=== PATIENT | female | born 1960 | race Caucasian/White ===

== ENCOUNTER 2017-07-06 07:52 | Emergency (ER) | payer BC ==
[~2017-07-06] VITALS: Ht 172.7 cm; Wt 75.0 kg
[~2017-07-06 07:52] MED LIST: CIPROFLOXACN500 MG PO; METRONIDAZOL500 MG PO; ONDANSETRON4 MG PO
[2017-07-06 08:18] LABS: IMMATURE GRANULOCYTES 0.4 % (0.0-1.0); MEAN CORPUSCULAR HGB 22.8 pG CALC (26.0-32.0); MEAN CORPUSCULAR HGB CONC 29.9 g/L CALC (32.0-36.0); NEUT# 4.25 thou/uL (2.00-7.15); RED BLOOD COUNT 3.6 mill/uL (4.20-5.60)
[2017-07-06 08:21] LABS: HEMATOCRIT 27.4 % (37.0-47.0); HEMOGLOBIN 8.2 g/dl (12.0-16.0); MEAN CELL VOLUME 76.1 fL CALC (80.0-100.0)
[2017-07-06 08:30] LABS: INFLUENZA A NONE DETECTED (NONE DETECT); INFLUENZA B NONE DETECTED (NONE DETECT)
[2017-07-06 08:37] LABS: ANION GAP 16 (6-22 (CALC)); BUN 15 mg/dL (7-17); BUN/CREATININE RATIO 16 (12-20 (CALC)); CARBON DIOXIDE 24 mmol/l (22-30); CHLORIDE 106 mmol/l (95-108); GFR 57 ML/MIN (>=60 (CALC)); GFR FOR AFR.AMER. > 60 ML/MIN (>=60 (CALC)); POTASSIUM 4.2 mmol/l (3.5-5.1); SODIUM 142 mmol/l (137-146)
[2017-07-06 09:08] LABS: TSH, 3RD GENERATION 2.25 uIU/mL (0.47 - 4.68)
[2017-07-06 09:59] VITALS: BP 144/76
[2017-07-06 10:11] VITALS: BP 148/80
[2017-07-06 10:14] LABS: URINE BILIRUBIN - DIPSTICK NEGATIVE (NEGATIVE); URINE BLOOD DIPSTICK NEGATIVE (NEGATIVE); URINE COLOR YELLOW; URINE GLUCOSE - DIPSTICK NEGATIVE (NEGATIVE); URINE KETONE NEGATIVE (NEGATIVE); URINE LEUK ESTERASE NEGATIVE (NEGATIVE); URINE NITRITE - DIPSTICK NEGATIVE (Negative); URINE PH 6.5 (4.5-8.0); URINE PROTEIN - DIPSTICK NEGATIVE (NEG-TRACE); URINE UROBILINOGEN - DIPSTICK 0.2 E.U./dL (0.2)
[2017-07-06 10:15] LABS: URINE CLARITY CLEAR
[2017-07-06 10:31] VITALS: BP 148/80
== END 2017-07-06 10:31 | disposition short-term general hospital (02) | DRG 312 ==
LOC: ED 07:52
PROVIDERS: Family Medicine
PROC: 30233N1 Transfusion of Nonautologous Red Blood Cells into Peripheral Vein, Percutaneous Approach (ICD-10-PCS; principal; 2017-07-06)
DX: R55 Syncope and collapse (principal); D64.9 Anemia, unspecified; K92.2 Gastrointestinal hemorrhage, unspecified; I10 Essential (primary) hypertension; F17.210 Nicotine dependence, cigarettes, uncomplicated
CPT/HCPCS: P9016

== ENCOUNTER 2018-03-02 05:26 | Emergency (ER) | payer BC ==
[~2018-03-02] VITALS: Ht 170.2 cm; Wt 68.1 kg
[2018-03-02 06:21] LABS: INFLUENZA B NONE DETECTED (NONE DETECT)
[2018-03-02] MEDS ORDERED: ROBITUSSIN AC10 ML PO (06:22)
[2018-03-02] MEDS ORDERED: ZITHROMAX250 MG PO (06:22)
[2018-03-02 06:25] VITALS: BP 113/70
== END 2018-03-02 06:35 | disposition home or self-care (01) | DRG 153 ==
LOC: ED 05:26
PROVIDERS: Emergency Medicine
DX: J06.9 Acute upper respiratory infection, unspecified (principal); I10 Essential (primary) hypertension; F32.9 Major depressive disorder, single episode, unspecified; K21.9 Gastro-esophageal reflux disease without esophagitis; F17.210 Nicotine dependence, cigarettes, uncomplicated

== ENCOUNTER 2018-12-15 09:20 | Emergency (ER) | payer BC ==
[~2018-12-15] VITALS: Ht 170.2 cm; Wt 75.0 kg
[~2018-12-15 09:20] MED LIST changes: +ROBITUSSIN AC10 ML PO; +ZITHROMAX250 MG PO
[2018-12-15 09:52] LABS: IMMATURE GRANULOCYTES 0.5 % (0.0-5.0); MEAN CORPUSCULAR HGB 29.1 pG CALC (26.0-32.0); MEAN CORPUSCULAR HGB CONC 32.9 g/L CALC (32.0-36.0); NEUT# 5.33 thou/uL (2.00-7.15); RED BLOOD COUNT 4.47 mill/uL (4.20-5.60); RED CELL DISTRI WIDTH 13.7 % (11.5-15.5)
[2018-12-15 09:54] LABS: HEMATOCRIT 39.5 % (37.0-47.0); MEAN CELL VOLUME 88.4 fL CALC (80.0-100.0)
[2018-12-15 10:11] LABS: ACT PARTIAL THROMBO TIME 26.6 SECONDS (20.0-32.5); INTERNATIONAL NORMALIZED RATIO 0.9 RATIO (0.7-1.3); PROTHROMBIN TIME 9.9 SECONDS (9.0-12.5)
[2018-12-15 10:27] LABS: ALBUMIN 4.5 g/dL (3.2-5.0); ALKALINE PHOSPHATASE 60 u/l (38-126); AMYLASE 47 u/l (30-110); ANION GAP 11 (6-22 (CALC)); BILIRUBIN, TOTAL 0.3 mg/dL (0.0-1.4); BUN 18 mg/dL (7-17); BUN/CREATININE RATIO 23 (12-20 (CALC)); CARBON DIOXIDE 26 mmol/l (22-30); CHLORIDE 108 mmol/l (95-108); CREATININE 0.8 mg/dL (0.5-1.0); ETHYL ALCOHOL 0 mg/dl (0-30); GFR > 60 ML/MIN (>=60 (CALC)); GFR FOR AFR.AMER. > 60 ML/MIN (>=60 (CALC)); LIPASE 61 u/l (23-300); POTASSIUM 4.4 mmol/l (3.5-5.1); SGOT/AST 20 u/l (14-36); SODIUM 141 mmol/l (137-146); TOTAL PROTEIN 7.5 g/dL (6.3-8.2)
[2018-12-15 11:49] LABS: URINE BILIRUBIN - DIPSTICK NEGATIVE (NEGATIVE); URINE BLOOD DIPSTICK NEGATIVE (NEGATIVE); URINE COLOR YELLOW; URINE GLUCOSE - DIPSTICK NEGATIVE (NEGATIVE); URINE KETONE NEGATIVE (NEGATIVE); URINE LEUK ESTERASE NEGATIVE (NEGATIVE); URINE NITRITE - DIPSTICK NEGATIVE (Negative); URINE PROTEIN - DIPSTICK NEGATIVE (NEG-TRACE); URINE UROBILINOGEN - DIPSTICK 0.2 E.U./dL (0.2)
[2018-12-15 11:52] LABS: BARBITURATES NEGATIVE (NEGATIVE); COCAINE NEGATIVE (NEGATIVE); METHADONE NEGATIVE (NEGATIVE); OXCYCODONE NEGATIVE (NEGATIVE); TETRAHYDROCANNABIONOL NEGATIVE (NEGATIVE); TRICYLIC ANTIDEPRESSANTS NEGATIVE (NEGATIVE)
[2018-12-15] MEDS ORDERED: ZOFRAN4 MG/TAB PO (13:18)
[2018-12-15] MEDS ORDERED: LIPITOR20 M1 PO (14:11)
[2018-12-15] MEDS ORDERED: NAPROXEN EC500 MG PO (14:11)
[2018-12-15] MEDS ORDERED: BUPROPION HCL150 M1 PO (14:11)
[2018-12-15] MEDS ORDERED: NORVASC5 M1 PO (14:12)
[2018-12-15] MEDS ORDERED: OMEPRAZOLE DR20 MG PO (14:12)
[2018-12-15] MEDS ORDERED: CITALOPRAM40 MG PO (14:12)
[2018-12-15] MEDS ORDERED: OXYBUTYNIN10 MG PO (14:13)
[2018-12-15] MEDS ORDERED: PREMARIN1.25 MG PO (14:14)
[2018-12-15 14:28] VITALS: BP 153/85
== END 2018-12-15 14:40 | disposition home or self-care (01) | DRG 149 ==
LOC: ED 09:20
DX: R42 Dizziness and giddiness (principal); R10.84 Generalized abdominal pain; I10 Essential (primary) hypertension; F17.200 Nicotine dependence, unspecified, uncomplicated
CPT/HCPCS: Q9967

== ENCOUNTER 2019-10-07 11:23 | Emergency (ER) | payer BC ==
[~2019-10-07] VITALS: Ht 170.2 cm; Wt 77.3 kg
[~2019-10-07 11:23] MED LIST changes: +BUPROPION HCL150 M1 PO; +CITALOPRAM40 MG PO; +LIPITOR20 M1 PO; +NAPROXEN EC500 MG PO; +NORVASC5 M1 PO; +OMEPRAZOLE DR20 MG PO; +OXYBUTYNIN10 MG PO; +PREMARIN1.25 MG PO; +ZOFRAN4 MG/TAB PO
[2019-10-07 11:56] LABS: HEMOGLOBIN 12.3 g/dl (12.0-16.0); IMMATURE GRANULOCYTES 0.8 % (0.0-5.0); MEAN CORPUSCULAR HGB 28.3 pG CALC (26.0-32.0); MEAN CORPUSCULAR HGB CONC 34.2 g/dL CAL (32.0-36.0); NEUT# 6.13 thou/uL (2.00-7.15); RED BLOOD COUNT 4.35 mill/uL (4.20-5.60); RED CELL DISTRI WIDTH 13.8 % (11.5-15.5)
[2019-10-07 11:57] LABS: MEAN CELL VOLUME 82.8 fL CALC (80.0-100.0)
[2019-10-07 12:11] LABS: INTERNATIONAL NORMALIZED RATIO 0.9 RATIO (0.7-1.3); PROTHROMBIN TIME 9.4 SECONDS (9.0-12.5)
[2019-10-07] MEDS ORDERED: ARNUITY EL50 MCG/ACT (12:15)
[2019-10-07] MEDS ORDERED: TRAMADOL HCL50 MG PO (12:16)
[2019-10-07] MEDS ORDERED: LYRICA75 MG PO (12:16)
[2019-10-07] MEDS ORDERED: DIOVAN160 MG PO (12:17)
[2019-10-07 12:45] LABS: ALBUMIN 4.2 g/dL (3.2-5.0); ALKALINE PHOSPHATASE 67 u/l (38-126); BILIRUBIN, TOTAL 0.3 mg/dL (0.0-1.4); BUN 22 mg/dL (7-17); BUN/CREATININE RATIO 26 (12-20 (CALC)); CARBON DIOXIDE 25 mmol/l (22-30); CHLORIDE 106 mmol/l (95-108); CREATININE 0.9 mg/dL (0.5-1.0); GFR > 60 ML/MIN (>=60 (CALC)); GFR FOR AFR.AMER. > 60 ML/MIN (>=60 (CALC)); SGOT/AST 33 u/l (14-36); SODIUM 136 mmol/l (137-146)
[2019-10-07 12:54] LABS: ANION GAP 9 (6-22 (CALC)); POTASSIUM 3.5 mmol/l (3.5-5.1)
[2019-10-07 14:04] LABS: URINE BILIRUBIN - DIPSTICK NEGATIVE (NEGATIVE); URINE BLOOD DIPSTICK NEGATIVE (NEGATIVE); URINE COLOR YELLOW; URINE GLUCOSE - DIPSTICK NEGATIVE (NEGATIVE); URINE KETONE NEGATIVE (NEGATIVE); URINE LEUK ESTERASE NEGATIVE (NEGATIVE); URINE NITRITE - DIPSTICK NEGATIVE (Negative); URINE PH 7.5 (4.5-8.0); URINE PROTEIN - DIPSTICK NEGATIVE (NEG-TRACE); URINE UROBILINOGEN - DIPSTICK 0.2 E.U./dL (0.2)
[2019-10-07 15:38] VITALS: BP 135/87
== END 2019-10-07 16:15 | disposition home or self-care (01) | DRG 880 ==
LOC: ED 11:23
PROVIDERS: Student in an Organized Health Care Education/Training Program
DX: F41.9 Anxiety disorder, unspecified (principal); R53.1 Weakness; I10 Essential (primary) hypertension; F32.9 Major depressive disorder, single episode, unspecified; F17.200 Nicotine dependence, unspecified, uncomplicated
CPT/HCPCS: J2060

== ENCOUNTER 2020-10-13 07:55 | Emergency (ER) | payer OTHER ==
[~2020-10-13] VITALS: Ht 170.2 cm; Wt 70.0 kg
[~2020-10-13 07:55] MED LIST changes: +ARNUITY EL50 MCG/ACT; +DIOVAN160 MG PO; +LYRICA75 MG PO; +TRAMADOL HCL50 MG PO
[2020-10-13 08:48] LABS: HEMATOCRIT 37.6 % (37.0-47.0); HEMOGLOBIN 12.1 g/dl (12.0-16.0); IMMATURE GRANULOCYTES 0.2 % (0.0-5.0); MEAN CORPUSCULAR HGB 28.3 pG CALC (26.0-32.0); MEAN CORPUSCULAR HGB CONC 32.2 g/dL CAL (32.0-36.0); NEUT# 3.62 thou/uL (2.00-7.15); RED BLOOD COUNT 4.28 mill/uL (4.20-5.60); RED CELL DISTRI WIDTH 13.9 % (11.5-15.5)
[2020-10-13 08:49] LABS: MEAN CELL VOLUME 87.9 fL CALC (80.0-100.0)
[2020-10-13 08:51] LABS: URINE BILIRUBIN - DIPSTICK NEGATIVE (NEGATIVE); URINE BLOOD DIPSTICK NEGATIVE (NEGATIVE); URINE COLOR YELLOW; URINE GLUCOSE - DIPSTICK NEGATIVE (NEGATIVE); URINE KETONE NEGATIVE (NEGATIVE); URINE LEUK ESTERASE NEGATIVE (NEGATIVE); URINE PH 7.5 (4.5-8.0); URINE PROTEIN - DIPSTICK TRACE mg/dL (NEG-TRACE); URINE SPECIFIC GRAVITY 1.015; URINE UROBILINOGEN - DIPSTICK 0.2 E.U./dL (0.2)
[2020-10-13 08:52] LABS: ALBUMIN 4.6 g/dL (3.2-5.0); ALKALINE PHOSPHATASE 63 u/l (38-126); BILIRUBIN, TOTAL 0.2 mg/dL (0.0-1.4); BUN 19 mg/dL (7-17); BUN/CREATININE RATIO 20 (12-20 (CALC)); CARBON DIOXIDE 27 mmol/l (22-30); CHLORIDE 105 mmol/l (95-108); CREATININE 0.9 mg/dL (0.5-1.0); GFR > 60 ML/MIN (>=60 (CALC)); GFR FOR AFR.AMER. > 60 ML/MIN (>=60 (CALC)); SGOT/AST 28 u/l (14-36); SODIUM 139 mmol/l (137-146); TOTAL PROTEIN 8.2 g/dL (6.3-8.2)
[2020-10-13 08:55] LABS: URINE NITRITE - DIPSTICK NEGATIVE (Negative)
[2020-10-13 09:02] LABS: ANION GAP 11 (6-22 (CALC)); POTASSIUM 4.3 mmol/l (3.5-5.1)
[2020-10-13 09:03] LABS: MYOGLOBIN 45 ng/mL (0 - 62)
[2020-10-13] MEDS ORDERED: CLARITIN10 M1 PO (10:18)
[2020-10-13] MEDS ORDERED: ZPAK PO (10:18)
[2020-10-13 10:20] VITALS: BP 162/82
== END 2020-10-13 10:32 | disposition home or self-care (01) | DRG 153 ==
LOC: ED 07:55
PROVIDERS: Emergency Medicine
DX: J32.9 Chronic sinusitis, unspecified (principal); I10 Essential (primary) hypertension; F32.9 Major depressive disorder, single episode, unspecified; K21.9 Gastro-esophageal reflux disease without esophagitis; F17.210 Nicotine dependence, cigarettes, uncomplicated; Z20.822 Contact with and (suspected) exposure to COVID-19

== ENCOUNTER 2021-02-06 10:12 | Observation (INO) | payer OTHER ==
[~2021-02-06] VITALS: Ht 170.2 cm; Wt 72.6 kg
[~2021-02-06 10:12] MED LIST changes: -BUPROPION HCL150 M1 PO; +BUPROPION100 MG PO; +CLARITIN10 M1 PO; +DITROPAN XL10 MG PO; -OXYBUTYNIN10 MG PO; +ZPAK PO
[2021-02-06 11:06] LABS: HEMOGLOBIN 11.3 g/dl (12.0-16.0); IMMATURE GRANULOCYTES 0.3 % (0.0-5.0); MEAN CELL VOLUME 85.4 fL CALC (80.0-100.0); MEAN CORPUSCULAR HGB 28.4 pG CALC (26.0-32.0); MEAN CORPUSCULAR HGB CONC 33.2 g/dL CAL (32.0-36.0); NEUT# 4.25 thou/uL (2.00-7.15); RED BLOOD COUNT 3.98 mill/uL (4.20-5.60); RED CELL DISTRI WIDTH 13.6 % (11.5-15.5)
[2021-02-06 11:22] LABS: ALBUMIN 4.4 g/dL (3.2-5.0); ALKALINE PHOSPHATASE 78 u/l (38-126); ANION GAP 14 (6-22 (CALC)); BILIRUBIN, TOTAL 0.4 mg/dL (0.0-1.4); BUN 21 mg/dL (8-23); BUN/CREATININE RATIO 23 (12-20 (CALC)); CARBON DIOXIDE 21 mmol/l (22-30); CHLORIDE 108 mmol/l (95-108); CREATININE 0.9 mg/dL (0.5-1.0); GFR > 60 ML/MIN (>=60 (CALC)); GFR FOR AFR.AMER. > 60 ML/MIN (>=60 (CALC)); POTASSIUM 4.6 mmol/l (3.5-5.1); SGOT/AST 21 u/l (9-36); SODIUM 138 mmol/l (137-146); TOTAL PROTEIN 7.7 g/dL (6.3-8.2)
[2021-02-06] MEDS ORDERED: TOPROL XL25 M1 PO (14:29)
[2021-02-06] MEDS ORDERED: FLONASE AL50 MCG/ACT (14:29)
[2021-02-06 15:47] VITALS: BP 179/93
[2021-02-06 19:00] VITALS: BP 118/68
[2021-02-07] VITALS: BP 111/77
[2021-02-07 04:00] VITALS: BP 143/89
[2021-02-07 06:12] LABS: HEMATOCRIT 33.1 % (37.0-47.0); HEMOGLOBIN 10.9 g/dl (12.0-16.0); MEAN CELL VOLUME 86.2 fL CALC (80.0-100.0); MEAN CORPUSCULAR HGB 28.4 pG CALC (26.0-32.0); MEAN CORPUSCULAR HGB CONC 32.9 g/dL CAL (32.0-36.0); RED BLOOD COUNT 3.84 mill/uL (4.20-5.60); RED CELL DISTRI WIDTH 13.7 % (11.5-15.5)
[2021-02-07 06:27] LABS: ANION GAP 9 (6-22 (CALC)); BUN 22 mg/dL (8-23); BUN/CREATININE RATIO 21 (12-20 (CALC)); CALCULATED LDLCHOLESTEROL 127 mg/dL (62-129 (CALC)); CARBON DIOXIDE 27 mmol/l (22-30); CHLORIDE 107 mmol/l (95-108); GFR 56 ML/MIN (>=60 (CALC)); GFR FOR AFR.AMER. > 60 ML/MIN (>=60 (CALC)); HDL CHOLESTEROL 49 mg/dL (>=40); MAGNESIUM 2.1 mg/dL (1.6-2.3); POTASSIUM 4.4 mmol/l (3.5-5.1); SODIUM 139 mmol/l (137-146); TOTAL CHOLESTEROL 244 mg/dl (0-199); TOTAL TRIGLYCERIDES 341 mg/dl (30-149); VLDL CHOLESTROL 68 mg/dl (1-41 (CALC))
[2021-02-07 07:15] VITALS: BP 149/82
[2021-02-07 10:54] VITALS: BP 137/86
[2021-02-07] MEDS ORDERED: TOPROL XL50 MG PO (15:46)
[2021-02-07] MEDS ORDERED: MECLIZINE25 MG PO (16:40)
[2021-02-07] MEDS ORDERED: ASPIRIN 81 LOW81 MG PO (16:40)
== END 2021-02-07 17:11 | disposition home or self-care (01) | DRG 313 ==
LOC: ED 10:12 → ED-I 13:14 → ED 13:31 → MS2 13:31
PROVIDERS: Family Medicine; ADMIT Hospitalist; ATTEND Hospitalist
DX: R07.9 Chest pain, unspecified (principal); R42 Dizziness and giddiness; R51.9 Headache, unspecified; R53.1 Weakness; I49.3 Ventricular premature depolarization; R00.8 Other abnormalities of heart beat; G47.30 Sleep apnea, unspecified; I10 Essential (primary) hypertension; E78.5 Hyperlipidemia, unspecified; K21.9 Gastro-esophageal reflux disease without esophagitis; F32.A Depression, unspecified; G89.4 Chronic pain syndrome; F17.200 Nicotine dependence, unspecified, uncomplicated; Z20.822 Contact with and (suspected) exposure to COVID-19
CPT/HCPCS: G0378; J1650

== ENCOUNTER 2021-02-18 13:37 | Emergency (ER) | payer OTHER ==
[~2021-02-18] VITALS: Ht 170.2 cm; Wt 75.0 kg
[~2021-02-18 13:37] MED LIST changes: +ASPIRIN 81 LOW81 MG PO; +FLONASE AL50 MCG/ACT; +MECLIZINE25 MG PO; +TOPROL XL25 M1 PO; +TOPROL XL50 MG PO
[2021-02-18 14:57] LABS: HEMATOCRIT 28.3 % (37.0-47.0); HEMOGLOBIN 9.3 g/dl (12.0-16.0); IMMATURE GRANULOCYTES 0.8 % (0.0-5.0); MEAN CELL VOLUME 86.8 fL CALC (80.0-100.0); MEAN CORPUSCULAR HGB 28.5 pG CALC (26.0-32.0); MEAN CORPUSCULAR HGB CONC 32.9 g/dL CAL (32.0-36.0); NEUT# 12.26 thou/uL (2.00-7.15); RED BLOOD COUNT 3.26 mill/uL (4.20-5.60); RED CELL DISTRI WIDTH 13.9 % (11.5-15.5)
[2021-02-18 15:14] LABS: AMYLASE 89 u/l (30-110); LIPASE 93 u/l (23-300)
[2021-02-18 15:24] LABS: MYOGLOBIN 100 ng/mL (0 - 62)
[2021-02-18 15:26] LABS: ALBUMIN 3.9 g/dL (3.2-5.0); ALKALINE PHOSPHATASE 65 u/l (38-126); ANION GAP 12 (6-22 (CALC)); BILIRUBIN, TOTAL 0.3 mg/dL (0.0-1.4); BUN 32 mg/dL (8-23); BUN/CREATININE RATIO 15 (12-20 (CALC)); CARBON DIOXIDE 27 mmol/l (22-30); CHLORIDE 103 mmol/l (95-108); GFR 24 ML/MIN (>=60 (CALC)); GFR FOR AFR.AMER. 29 ML/MIN (>=60 (CALC)); POTASSIUM 4.2 mmol/l (3.5-5.1); SGOT/AST 21 u/l (9-36); SODIUM 137 mmol/l (137-146)
[2021-02-18 15:29] LABS: CREATININE 2.1 mg/dL (0.5-1.0)
[2021-02-18 17:25] VITALS: BP 147/90
[2021-02-18 17:40] LABS: ACT PARTIAL THROMBO TIME 20.1 SECONDS (20.0-32.5)
== END 2021-02-18 17:25 | disposition short-term general hospital (02) | DRG 311 ==
LOC: ED 13:37
PROVIDERS: Emergency Medicine
DX: I20.0 Unstable angina (principal); I10 Essential (primary) hypertension; F32.A Depression, unspecified; K21.9 Gastro-esophageal reflux disease without esophagitis

== ENCOUNTER 2021-05-30 06:58 | Day surgery (SDC) | payer OTHER ==
[~2021-05-30] VITALS: Ht 170.2 cm; Wt 77.1 kg
[~2021-05-30 06:58] MED LIST changes: +ALPRAZOLAM ER0.5 MG PO; +IRON (FERROUS S50 MG PO; +ISORDIL10 MG PO; +MAGNESIUM250 M1 PO; +MELATONIN PO; +MULTIVITAMIN1 TA1 PO; +STOOL SOFTENER100 M1 PO; +VITAMIN C500 M6 PO
[2021-05-30 08:42] VITALS: BP 133/89
== END 2021-05-30 09:43 | disposition home or self-care (01) | DRG 812 ==
LOC: ENDO 06:58 → ORM 11:05 → ENDO 11:05 → ORM 11:30
PROVIDERS: ATTEND Surgery
PROC: 0DJD8ZZ Inspection of Lower Intestinal Tract, Via Natural or Artificial Opening Endoscopic (ICD-10-PCS; principal; 2021-05-30)
DX: D64.9 Anemia, unspecified (principal); R19.5 Other fecal abnormalities; K57.30 Diverticulosis of large intestine without perforation or abscess without bleeding; K64.8 Other hemorrhoids; I10 Essential (primary) hypertension; K21.9 Gastro-esophageal reflux disease without esophagitis; F41.9 Anxiety disorder, unspecified